=== PATIENT | male | born 1990 | race African-American/Black ===

== ENCOUNTER 2016-10-09 14:24 | Emergency (ER) | payer MEDICAID ==
[~2016-10-09] VITALS: Ht 167.6 cm; Wt 77.0 kg
[~2016-10-09 14:24] MED LIST: IBUP800T25 PO; ULT50 PO
[2016-10-09 14:35] VITALS: Ht 167.6 cm; Wt 77.0 kg
[2016-10-09] MEDS ORDERED: ONDANSETRON (ODT) 4 MG TAB ODT STA (15:41)
[2016-10-09] MEDS ORDERED: TRAM50TA2 PO (15:51)
[2016-10-09] MEDS ORDERED: CLIN-73 PO (15:51)
[2016-10-09] MEDS ORDERED: TRIMETHOPRIM/SULFAMETHOX (DS) TAB PO ONE (16:00)
[2016-10-09] MEDS ORDERED: CEPHALEXIN 500 MG CAP PO ONE (16:00)
[2016-10-09] MEDS ORDERED: CLINDAMYCIN 300 MG INJ IM ONE (16:00)
[2016-10-09] MEDS ORDERED: HYDROCODONE/APAP (5/325) TAB PO ONE (16:00)
--- NOTE | 2016-10-09 16:17 | ERD ---
ER Documentation Chief Complaint Date/Time DATE: 10/09/16 TIME: 16:11 Chief Complaint L mouth swelling X 5 days, difficulty swallowing. HPI This is a 26-year-old male presenting to the emergency room complaining of left upper mouth pain and facial swelling for the past 5 days. He rates his pain 8 out of 10. She admits to having difficulty swallowing. Patient states that he thinks he has a dental abscess. Patient denies any fevers. Patient states that he has not taken anything for pain however he has taken a penicillin 500 mg antibiotic 1 hour prior to being seen that was given to him by his brother ROS All systems reviewed and are negative except as per history of present illness. Medications Home Meds Active Scripts Tramadol HCl (Tramadol HCl) 50 Mg Tablet, 50 MG PO Q6 Y for PAIN, #20 TAB Prov:JOSÉ MANUEL AVALOS PA-C 10/09/16 Clindamycin Hcl* (Clindamycin Hcl*) 300 Mg Capsule, 300 MG PO TID for 7 Days, CAP Prov:JOSÉ MANUEL AVALOS PA-C 10/09/16 Tramadol HCl (Tramadol HCl) 50 Mg Tablet, 50 MG PO Q4 Y for PAIN, #20 TAB Prov:OLIVIA FONSECA 03/13/16 Ibuprofen* (Motrin*) 800 Mg Tab, 800 MG PO Q6, #30 TAB Prov:OLIVIA FONSECA 03/13/16 Allergies Allergies: Coded Allergies: No Known Allergy (Unverified , 03/12/16) PMhx/Soc History of Surgery: No Anesthesia Reaction: No Hx Neurological Disorder: No Hx Respiratory Disorders: No Hx Cardiac Disorders: No Hx Psychiatric Problems: No Hx Miscellaneous Medical Probl: No Hx Alcohol Use: No Hx Substance Use: Yes (MARIJUANA ) Hx Tobacco Use: No Physical Exam Vitals Vital Signs Date Time Temp Pulse Resp B/P Pulse Ox O2 Delivery O2 Flow Rate FiO2 10/09/16 14:35 98.2 67 18 132/65 98 Physical Exam GENERAL: WD/WN, in no apparent distress, non-toxic appearing HENT: NC/AT poor dental hygiene throughout mouth especially in the left upper molars Facial swelling 6cm upward on face, does not reach orbits, no periorbital swelling EYES: Conjunctiva normal, extraocular muscles intact bilaterally, pupils are equal and reactive to light bilaterally NECK: Supple. No meningeal signs PULM: Clear to auscultation bilaterally. Normal labored breathing CV: Regular rate and rhythm, no murmurs GI: Soft, non tender, non distended. Normal bowel sounds BACK: No masses EXT: No clubbing, cyanosis, or edema. NEURO: Awake and Alert SKIN: No petechiae or rashes PSYCH: Normal mood Results 24 hrs Current Medications Medications (Trade) Dose Ordered Sig/Ivette Route PRN Reason Start Time Stop Time Status Last Admin Dose Admin Cephalexin (Keflex) 500 mg ONCE ONCE PO 10/09/16 16:00 10/09/16 16:00 DC Trimethoprim/ Sulfamethoxazole (Bactrim (Ds)) 1 tab ONCE ONCE PO 10/09/16 16:00 10/09/16 16:00 DC Acetaminophen/ Hydrocodone Bitart ([place] (5/325)) 1 tab ONCE ONCE PO 10/09/16 16:00 10/09/16 16:01 DC 10/09/16 15:47 Ondansetron HCl (Zofran Odt) 4 mg ONCE STAT ODT 10/09/16 15:41 10/09/16 15:43 DC 10/09/16 15:47 Clindamycin Phosphate (Cleocin) 600 mg ONCE ONCE IM 10/09/16 16:00 10/09/16 16:01 DC Procedures/MDM This is a 26-year-old male presenting to the emergency room with poor left upper molar dental hygiene and facial swelling for the past 5 days which is likely due to a dental abscess with facial swelling. I have a low suspicion for periorbital cellulitis, orbital cellulitis, deep space infections, osteomyelitis or bacteremia. Patient was given clindamycin 600 mg IM in the ED along with tramadol for pain and Zofran. Patient has stable vital signs he is afebrile and does not appear toxic. I have consulted my supervising physician Dr. De La Rosa who suggested patient is suitable for no imaging and outpatient antibiotics with strict follow-up with a dentist today or tomorrow. A prescription for clindamycin, tramadol was provided. Discussed to follow-up with a dentist. Discussed if he is unable to, discussed return in 2 days for wound check. Discussed return to the ER for any worsening symptoms. Patient understands and agrees with this plan Departure Diagnosis: Primary Impression: Dental abscess Condition: Fair Patient Instructions: Dental Abscess, Dental Abscess W/ Facial Cellulitis Referrals: [facility] ([facility] walk in clinic) [facility] YOU HAVE RECEIVED A MEDICAL SCREENING EXAM AND THE RESULTS INDICATE THAT YOU DO NOT HAVE A CONDITION THAT REQUIRES URGENT TREATMENT IN THE EMERGENCY DEPARTMENT. FURTHER EVALUATION AND TREATMENT OF YOUR CONDITION CAN WAIT UNTIL YOU ARE SEEN IN YOUR DOCTORS OFFICE WITHIN THE NEXT 1-2 DAYS. IT IS YOUR RESPONSIBILITY TO MAKE AN APPOINTMENT FOR FOLOW-UP CARE. IF YOU HAVE A PRIMARY DOCTOR --you should call your primary doctor and schedule an appointment IF YOU DO NOT HAVE A PRIMARY DOCTOR YOU CAN CALL OUR PHYSICIAN REFERRAL HOTLINE AT IF YOU CAN NOT AFFORD TO SEE A PHYSICIAN YOU CAN CHOSE FROM THE FOLLOWING [facility] [address] [facility] [address] [facility] [address] [facility] [address] [facility] [address] [facility] [facility] [address] Additional Instructions: PLEASE FOLLOW-UP WITH A DENTIST TOMORROW OR SOON POSSIBLE SPECIALIST: YOU HAVE A MEDICAL CONDITION WHICH REQUIRES YOU TO SEE A SPECIALIST WITHIN THE NEXT DAY. PLEASE FOLLOW UP WITH YOUR DENTIST.IF YOU DO NOT HAVE A DENTIST AND/OR YOU CAN NOT AFFORD TO SEE A PHYSICIAN THE FOLLOWING RESOURCES HAVE BEEN SUPPLIED TO YOU. IT IS YOUR RESPONSIBILITY TO BE SEEN BY THE SPECIALIST Follow up in 2 days in your clinic for wound check. Take all medicines as directed. Return to this facility if you are not improving as expected. JOSÉ MANUEL AVALOS PA-C Oct 09, 2016 16:17
[2016-10-09 16:51] VITALS: BP 121/62; PULSE 60; RESP 18; TEMP 98
== END 2016-10-09 16:52 | disposition home or self-care (01) ==
LOC: FTE 14:24
DX: K04.7 Periapical abscess without sinus (principal)
CPT/HCPCS: Z7610 ×3; 96372